=== PATIENT | male | born 2000 | race Hispanic/Latino ===

== ENCOUNTER 2021-04-13 11:12 | Outpatient (CLI) | payer OTHER | END 2021-04-13 11:13 | disposition home or self-care (01) | LOC: CSHMRI 11:12 | PROVIDERS: ATTEND Family Medicine | DX: R10.11 Right upper quadrant pain (principal); Z90.49 Acquired absence of other specified parts of digestive tract; E80.6 Other disorders of bilirubin metabolism; Z87.19 Personal history of other diseases of the digestive system; K65.4 Sclerosing mesenteritis | CPT/HCPCS: 74181 ==